=== PATIENT | male | born 1960 | race Caucasian/White ===

== ENCOUNTER 2023-09-29 08:24 | Day surgery (SDC) | payer BC ==
[2023-09-29] VITALS (15 sets, daily range): BP systolic 110–139; BP diastolic 77–102
[~2023-09-29] VITALS: Ht 172.7 cm; Wt 64.9 kg
[~2023-09-29 08:24] MED LIST: Lactated Ringer's 1,000 ML IV SCH; ROPI1 PO; TRAZ50 PO; propofoL 40 ML IV ONE
--- NOTE | 2023-09-29 09:26 | NUR ---
Ambulatory in Day Surgery History, Chart, Medications and Allergies reviewed before start of procedure. Pre-Op teaching done. Pt verbalizes understanding. Patient States Post-Procedure ride home has been arranged.
--- NOTE | 2023-09-29 09:53 | NUR ---
09/29/23 0953 Carol Wilson HISTORY, CHART, MEDICATIONS AND ALLERGIES REVIEWED BEFORE START OF PROCEDURE. PATIENT CONFIRMS NPO STATUS AND AGREES WITH SCHEDULED PROCEDURE. 3-LEAD EKG REVIEWED WITH PHYSICIAN PRIOR TO START OF PROCEDURE. MONITOR INTACT WITH CONTINUOUS PULSE OXIMETRY,CAPNOGRAPHY, 3-LEAD EKG, INTERMITTENT BP. SUPPLEMENTAL O2 TO BE TITRATED THROUGHOUT PROCEDURE TO MAINTAIN O2 SATURATION ABOVE 90%. PATIENT DETERMINED TO BE ASA APPROPRIATE FOR PROPOFOL SEDATION PRIOR TO START OF PROCEDURE BY DR. LOW
--- NOTE | 2023-09-29 10:31 | NUR ---
TOLERATING PO FLUIDS WELL
--- NOTE | 2023-09-29 10:58 | NUR ---
Patient up to Ambulate independently. Gait steady. Discharged via wheelchair to private car for ride home.
== END 2023-09-29 10:59 | disposition home or self-care (01) ==
LOC: ORSCMMR 08:24 → ORD 09:30 → ORSCMMR 09:30
PROVIDERS: Internal Medicine Gastroenterology
PROC: 0DBP8ZX Excision of Rectum, Via Natural or Artificial Opening Endoscopic, Diagnostic (ICD-10-PCS; principal; 2023-09-29 09:30)
DX: Z12.11 Encounter for screening for malignant neoplasm of colon (principal); K62.1 Rectal polyp; Z98.84 Bariatric surgery status; Z87.11 Personal history of peptic ulcer disease; F17.200 Nicotine dependence, unspecified, uncomplicated; Z79.899 Other long term (current) drug therapy
CPT/HCPCS: 88305; J2704; J7120

== ENCOUNTER 2024-04-26 05:09 | Day surgery (SDC) | payer OTHER, BC ==
[~2024-04-26 05:09] MED LIST changes: -Lactated Ringer's 1,000 ML IV SCH; -propofoL 40 ML IV ONE
[2024-04-26] MEDS ORDERED: Sod Ferric Gluc Complx/Sucrose 125 MG in NS 100 ML IV SCH (14:10)
[2024-04-26 14:26] VITALS: BP 125/88
[2024-04-26] MEDS ORDERED: ESCI10 PO (14:30)
== END 2024-04-26 15:28 | disposition home or self-care (01) ==
LOC: ATC 05:09
DX: E61.1 Iron deficiency (principal); F43.10 Post-traumatic stress disorder, unspecified; F10.21 Alcohol dependence, in remission; Z72.0 Tobacco use; Z98.84 Bariatric surgery status
CPT/HCPCS: 96365; J2916

== ENCOUNTER 2024-05-03 05:05 | Day surgery (SDC) | payer OTHER, BC ==
[~2024-05-03 05:05] MED LIST changes: +ESCI10 PO; +Sod Ferric Gluc Complx/Sucrose 125 MG in NS 100 ML IV SCH
[2024-05-03 15:00] VITALS: BP 141/90
== END 2024-05-03 16:05 | disposition home or self-care (01) ==
LOC: ATC 05:05
DX: E61.1 Iron deficiency (principal); F43.10 Post-traumatic stress disorder, unspecified; F10.21 Alcohol dependence, in remission; Z72.0 Tobacco use
CPT/HCPCS: 96365; J2916

== ENCOUNTER 2024-05-11 00:46 | Day surgery (SDC) | payer OTHER, BC ==
[~2024-05-11 00:46] MED LIST changes: -Sod Ferric Gluc Complx/Sucrose 125 MG in NS 100 ML IV SCH
[2024-05-11] MEDS ORDERED: Sod Ferric Gluc Complx/Sucrose 125 MG in NS 100 ML IV SCH (01:00)
[2024-05-11 15:06] VITALS: BP 127/63
== END 2024-05-11 16:23 | disposition home or self-care (01) ==
LOC: ATC 00:46
DX: E61.1 Iron deficiency (principal); F10.21 Alcohol dependence, in remission; F17.290 Nicotine dependence, other tobacco product, uncomplicated; Z79.899 Other long term (current) drug therapy
CPT/HCPCS: 96365; J2916